=== PATIENT | male | born 2000 | race Two or more races ===

== ENCOUNTER 2021-06-28 12:47 | Emergency (ER) | payer MEDICAID ==
[~2021-06-28] VITALS: Ht 167.6 cm; Wt 79.5 kg
[2021-06-28 13:06] VITALS: BP 112/65
[2021-06-28] MEDS ORDERED: FAMO40TA87 PO (14:35)
== END 2021-06-28 15:02 | disposition home or self-care (01) ==
LOC: ER 12:50
DX: J02.9 Acute pharyngitis, unspecified (principal); R06.02 Shortness of breath; R09.81 Nasal congestion; R07.89 Other chest pain; Z79.899 Other long term (current) drug therapy
CPT/HCPCS: 99282